=== PATIENT | female | born 1970 | race Caucasian/White ===

== ENCOUNTER 2016-04-13 21:31 | Inpatient (IN) | payer MEDICAID, SELFPAY ==
[~2016-04-13] VITALS: Ht 167.6 cm; Wt 47.7 kg
[2016-04-13] MEDS ORDERED: SODIUM CHLORIDE 0.9% 1,000 ML ONE (22:10)
[2016-04-13] MEDS ORDERED: LORAZEPAM 2 MG/ML VIAL ONE ×2 (22:10→23:37)
[2016-04-13] MEDS ORDERED: MULTIVITS ADULT INJ 10 ML, THIAMINE 100 MG, FOLIC ACID INJ 1 MG in SODIUM CHLORIDE 0.9%... IV ONE ×3 (22:15)
[2016-04-14] VITALS (11 sets, daily range): BP systolic 125–148; RESP 15–20; TEMP 97.8–98.8; BMI 25.1
[2016-04-14] MEDS ORDERED: FOLIC ACID INJ 1 MG in SODIUM CHLORIDE 0.9% 50 ML IV ONE (00:25)
[2016-04-14] MEDS ORDERED: LORAZEPAM 2 MG/ML VIAL IV PRN (00:25)
[2016-04-14] MEDS ORDERED: ONDANSETRON 4 MG VIAL IV PRN (00:25)
[2016-04-14] MEDS ORDERED: KCL 20 MEQ PACK PO ONE (00:45)
[2016-04-14] MEDS ORDERED: Flu Vaccine Quadrivalent 60 MCG/0.5 ML IM.VACC ONE (03:00)
[2016-04-14] MEDS: D5-1/2-NS W/KCL 20MEQ/L 1,000 ML IV SCH (03:00)
[2016-04-14] MEDS ORDERED: *PINK BRACELET XX ONE (03:35)
[2016-04-14] MEDS: NEB-XOPENEX 1.25 MG/3 ML INH SCH ×2 (06:24→10:18)
[2016-04-14] MEDS ORDERED: NEB-ALBUTEROL 2.5 MG/3 ML INH SCH (06:30)
[2016-04-14] MEDS: *HOME MEDS KEPT IN PHARMACY* BIN 2 XX SCH ×2 (08:00→20:00)
[2016-04-14] MEDS: ENOXAPARIN 40 MG/0.4 ML SYR SUBQ SCH (08:42)
[2016-04-14] MEDS: CEFTRIAXONE 1 GM in SODIUM CHLORIDE 0.9% 50 ML IV SCH (08:42)
[2016-04-14] MEDS ORDERED: NEB-ALBUTEROL 2.5 MG/3 ML INH PRN (12:00)
[2016-04-14] MEDS: DUONEB INH SCH ×4 (12:00→23:36)
[2016-04-14] MEDS: FOLIC ACID 1 MG TAB PO SCH (12:26)
[2016-04-14] MEDS: ASPIRIN 81 MG CHEW TAB PO SCH (12:26)
[2016-04-14] MEDS: LISINOPRIL 10 MG TAB PO SCH ×2 (12:26→19:42)
[2016-04-14] MEDS: FAMOTIDINE 20 MG TAB PO SCH (12:26)
[2016-04-14] MEDS: ATENOLOL 25 MG TAB PO SCH ×2 (12:27→19:42)
[2016-04-14] MEDS: BACLOFEN 10 MG TAB PO SCH ×2 (15:51→19:42)
[2016-04-14] MEDS: LORAZEPAM 2 MG/ML VIAL IV PRN (16:35)
[2016-04-14] MEDS: NICOTINE 14 MG/24 HR TDSY TRANSDERM SCH (17:52)
[2016-04-15] VITALS (10 sets, daily range): BP systolic 121–159; RESP 16–20; TEMP 97.8–98.9; Ht 167.6 cm; Wt 47.7 kg
[2016-04-15] MEDS: D5-1/2-NS W/KCL 20MEQ/L 1,000 ML IV SCH ×3 (02:14→22:57)
[2016-04-15] MEDS: DUONEB INH SCH ×4 (07:45→23:39)
[2016-04-15] MEDS: *HOME MEDS KEPT IN PHARMACY* BIN 2 XX SCH ×2 (08:00→20:00)
[2016-04-15] MEDS: CEFTRIAXONE 1 GM in SODIUM CHLORIDE 0.9% 50 ML IV SCH (08:57)
[2016-04-15] MEDS: ENOXAPARIN 40 MG/0.4 ML SYR SUBQ SCH (08:57)
[2016-04-15] MEDS: ASPIRIN 81 MG CHEW TAB PO SCH (08:58)
[2016-04-15] MEDS: THIAMINE 100 MG TAB PO SCH (08:58)
[2016-04-15] MEDS: ATENOLOL 25 MG TAB PO SCH ×2 (08:58→21:03)
[2016-04-15] MEDS: BACLOFEN 10 MG TAB PO SCH ×3 (08:58→21:03)
[2016-04-15] MEDS: FOLIC ACID 1 MG TAB PO SCH (08:58)
[2016-04-15] MEDS: FAMOTIDINE 20 MG TAB PO SCH (08:58)
[2016-04-15] MEDS: NICOTINE 14 MG/24 HR TDSY TRANSDERM SCH (08:58)
[2016-04-15] MEDS: LISINOPRIL 10 MG TAB PO SCH ×2 (08:58→21:03)
[2016-04-15] MEDS ORDERED: NICOTINE 14 MG/24 HR TDSY TRANSDERM SCH (09:00)
[2016-04-15] MEDS: LORAZEPAM 2 MG/ML VIAL IV PRN ×5 (10:35→18:30)
[2016-04-15] MEDS ORDERED: ONDANSETRON 4 MG VIAL IV PRN (12:40)
[2016-04-15] MEDS: MULTIVITS/MINERALS (THERAGRAN M) TAB PO SCH (13:02)
[2016-04-15] MEDS ORDERED: ACETAMINOPHEN 325 MG TAB PO PRN (22:35)
[2016-04-16 03:57] VITALS: BP_SYST 143; RESP 18; TEMP 97.8
[2016-04-16 07:03] VITALS: BP_SYST 136; RESP 18; TEMP 98.2
[2016-04-16] MEDS: DUONEB INH SCH ×2 (07:14→11:45)
[2016-04-16] MEDS ORDERED: FOLIC ACID 1 MG TAB PO SCH (09:00)
[2016-04-16] MEDS: MAGNESIUM SULF 1 GM/100 ML 100 ML IV SCH ×2 (09:22→10:35)
[2016-04-16] MEDS: D5-1/2-NS W/KCL 20MEQ/L 1,000 ML IV SCH (09:22)
[2016-04-16] MEDS: *HOME MEDS KEPT IN PHARMACY* BIN 2 XX SCH (09:22)
[2016-04-16] MEDS: LISINOPRIL 10 MG TAB PO SCH (09:23)
[2016-04-16] MEDS: THIAMINE 100 MG TAB PO SCH (09:23)
[2016-04-16] MEDS: ATENOLOL 25 MG TAB PO SCH (09:23)
[2016-04-16] MEDS: FAMOTIDINE 20 MG TAB PO SCH (09:23)
[2016-04-16] MEDS: ASPIRIN 81 MG CHEW TAB PO SCH (09:23)
[2016-04-16] MEDS: MULTIVITS/MINERALS (THERAGRAN M) TAB PO SCH (09:23)
[2016-04-16] MEDS: ENOXAPARIN 40 MG/0.4 ML SYR SUBQ SCH (09:24)
[2016-04-16] MEDS: NICOTINE 14 MG/24 HR TDSY TRANSDERM SCH (09:24)
[2016-04-16] MEDS: BACLOFEN 10 MG TAB PO SCH (09:25)
[2016-04-16 10:58] VITALS: BP_SYST 136; RESP 18; TEMP 98.2
[2016-04-16 11:03] VITALS: BP_SYST 139; RESP 18; TEMP 98.1
[2016-04-17] MEDS ORDERED: THIAMINE 100 MG in SODIUM CHLORIDE 0.9% 50 ML IV SCH (09:00)
== END 2016-04-16 12:27 | disposition home or self-care (01) | DRG 897 ==
LOC: ENRESERVDT → ENRESERVTM → ER 21:31 → EMR 04-14 00:25 → ENPENDDIS 04-14 00:25 → 5THE 04-14 02:07
PROVIDERS: ADMIT Family Medicine; ATTEND Internal Medicine
DX: F10.239 Alcohol dependence with withdrawal, unspecified (principal); E83.42 Hypomagnesemia; I10 Essential (primary) hypertension; Y90.0 Blood alcohol level of less than 20 mg/100 ml; E87.6 Hypokalemia; Z72.0 Tobacco use; D75.89 Other specified diseases of blood and blood-forming organs
CPT/HCPCS: 36415; 80048; 80053; 80307; 80320; 80329; 81001; 82607; 82746; 83735; 83880; 84100; 84439; 84443; 85025; 85610; 87088; 93005; 93306; 94640; 94799; 96361; 96365; 96375; 96376; 99223; 99232; 99238